=== PATIENT | male | born 1985 | race Caucasian/White ===

== ENCOUNTER 2018-03-03 09:28 | Outpatient (REF) | payer SELFPAY ==
[2018-03-03 16:28] LABS: Cholesterol 173 mg/dL (50-200); Glucose 102 mg/dL (70-100); HDL Cholesterol 58 mg/dL (40-60); LDL CHOLESTEROL 105 mg/dL (<100); Triglyceride 74 mg/dL (30-150)
== END 2018-03-03 09:48 ==
LOC: NCHCN 09:28
PROVIDERS: Visit Provider Internal Medicine
DX: Z00.00 Encounter for general adult medical examination without abnormal findings (principal); E66.9 Obesity, unspecified
CPT/HCPCS: 80061; 82947; 83721

== ENCOUNTER 2021-05-12 15:16 | Outpatient (REF) | payer SELFPAY ==
[2021-05-13 23:17] LABS: COVID-19 RT-PCR UVMMC Result Negative (Negative)
== END 2021-05-12 15:17 | disposition home or self-care (01) ==
LOC: LBN 15:16
PROVIDERS: Visit Provider Internal Medicine
DX: Z20.822 Contact with and (suspected) exposure to COVID-19 (principal)
CPT/HCPCS: U0003

== ENCOUNTER 2021-12-14 20:05 | Emergency (ER) | payer OTHER, SELFPAY ==
[2021-12-14 20:11] VITALS: PULSE 80; RESP 18; TEMP 36.6; O2SAT 100
--- NOTE | 2021-12-14 20:23 | ED.GENADUL_ITS ---
Discharge Plan Disposition Patient Disposition: HOME Condition: Stable Discharge Details Clinical Impression: Laceration of foot, left Primary Care Provider: Unknown,Unknown ED Provider: Ilya Ryder Discharge Instructions Additional Instructions: because the injury occurred over 24 hours ago sutures or surgical glue was not placed, it will heal over time you are being treated with cephalexin to cover for common skin bacteria and also ciprofloxacin since the injury occurred in freshwater if you develop severe worsening pain, fevers, or yellow/white discharge from the wound return to the emergency department Medical Decision Making 36 yo male who denies chronic medical problems comes in with laceration under the left small toe. [place] in [place] about 30 hours ago when he stepped on a rock cutting under the left toe. HE came in tonight for evaluation. He denies other injuries, no fevers, no discharge. He has a 1cm laceration at the base of the left small toe that runs along the crease at the mcp joint, no discharge, intact sensation and normal capillary refill, no foreign body visualized or palpated. Given the injury occurred over 24 hours ago will heal by secondary intention at this time. Will start him on prophylactic antibiotics with cephalexin and cipro given this was a freshwater injury. Nursing will clean the wound, return precautions given Differential Diagnosis Differential Diagnosis: laceration, freshwater injury HPI General Mode of arrival: ambulatory . Date/Time Provider Initiated Documentation: 12/14/21 20:06 . Limitations to Documentation: no limitations . Information obtained by: patient . History of Present Illness 36 year old M presents to the emergency department with the chief complaint of laceration under small toe left foot, described as moderate, Patient reports no radiation. Patient started experiencing this hour(s) (30) and it has been constant. No relieving factors improve symptom(s), No exacerbating factors reported . Patient notes no other symptoms.. Patient did receive the following treatments prior to arrival, none Related Data Allergies Allergy/AdvReac Type Severity Reaction Status Date / Time shellfish derived Allergy Severe Swelling/Ed Unverified 12/14/21 20:15 macario General Stated Complaint: Laceration JASS: 4 Review of Systems All systems reviewed & are unremarkable except as noted in HPI and below Constitutional Constitutional: Denies chills, Denies fever(s) and Denies weakness Cardiovascular Cardiovascular: Denies chest pain and Denies dyspnea Respiratory Respiratory: Denies dyspnea Gastrointestinal Gastrointestinal: Denies abdominal pain and Denies vomiting Integumentary/Breasts Skin/Breast: Denies rash Neurologic Neurologic: Denies weakness PFSH All Active Problems (Updated 12/14/21 @ 20:30 by Ilya Ryder MD) Laceration of foot, left (Acute) Social History Smoking risk assessment performed?: No Exam Const General: no acute distress Orientation: alert [facility] Head: normal to inspection Ears: external ears normal General nose exam: external nose normal Mouth: moist mucous membranes Eyes General: appearance normal, both eyes and all related structures Neck Neck: normal visual inspection Resp Effort & Inspection: normal respiratory effort and able to speak in complete sentences Cardio Rate: regular rate Skin General skin exam: no rashes or lesions noted Neuro General: patient alert and patient oriented x3 Extrem General: capillary refill normal Psych Mental Status: mental status grossly normal Course Vital Signs Vital signs: Vital Signs Temperature 36.6 C 12/14/21 20:11 Pulse 80 12/14/21 20:11 Respiratory Rate 18 12/14/21 20:11 Pulse Oximetry 100 12/14/21 20:11 Temperature 36.6 C 12/14/21 20:11 Temperature Source Temporal Artery Scan 12/14/21 20:11 Pulse 80 12/14/21 20:11 Respiratory Rate 18 12/14/21 20:11 Blood Pressure Position Sitting 12/14/21 20:11 Pulse Oximetry 100 12/14/21 20:11 Oxygen Delivery Method Room Air 12/14/21 20:11 Oxygen Flow Rate 0 12/14/21 20:11 Pain Level 0 12/14/21 20:11
[2021-12-14] MEDS: Cephalexin 500 MG CAP PO (20:41)
[2021-12-14] MEDS: Ciprofloxacin 500 MG TAB PO (20:42)
== END 2021-12-14 20:55 | disposition home or self-care (01) ==
LOC: ER 20:36
PROVIDERS: Emergency Provider Emergency Medicine
DX: S91.115A Laceration without foreign body of left lesser toe(s) without damage to nail, initial encounter (principal); W26.8XXA Contact with other sharp object(s), not elsewhere classified, initial encounter
CPT/HCPCS: 99283

== ENCOUNTER 2024-04-19 13:01 | Outpatient (REF) | payer SELFPAY ==
[2024-04-21 13:06] LABS: Appearance Normal; Container Type 50 mL Conical; Germ Cells/mL 0.12 x10(6) (<4.00); Grade 2.5 (>=2.5); Head Size Abnormal 1.5 %; Midpiece Defect 37.5 %; Motile/Ejaculate 29.8 x10(6) (>=9.0); Motile/mL 11.9 x10(6) (>=6.0); Motility 50 % (>=40); Semen Volume 2.5 mL (>=1.5); Sperm/mL 23.8 x10(6) (>=15.0); Strict Morph NL 1.5 % (>=4.0); Study Type Semen; Tail Defect 18.5 %
== END 2024-04-19 13:02 | disposition home or self-care (01) ==
LOC: LBN 13:01
PROVIDERS: Visit Provider Obstetrics & Gynecology Gynecology
DX: Z31.9 Encounter for procreative management, unspecified (principal)
CPT/HCPCS: 89240; 89310

== ENCOUNTER 2024-06-13 21:16 | Outpatient (REF) | payer SELFPAY ==
[2024-06-15 16:01] LABS: Acrosom Defect 22.5 %; Appearance Normal; Container Type 50 mL Conical; Double Forms 7.5 %; Germ Cells/mL 0.21 x10(6) (<4.00); Head Size Abnormal 2.5 %; Midpiece Defect 26.5 %; Motile/Ejaculate 33.6 x10(6) (>=9.0); Motile/mL 16.8 x10(6) (>=6.0); Motility 40 % (>=40); Study Type Semen
== END 2024-06-13 21:17 | disposition home or self-care (01) ==
LOC: LBN 21:16
PROVIDERS: Visit Provider Obstetrics & Gynecology Gynecology
DX: Z31.9 Encounter for procreative management, unspecified (principal)
CPT/HCPCS: 89240; 89310